=== PATIENT | male | born 2005 | race Caucasian/White ===

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

== ENCOUNTER 2025-02-25 12:56 | Emergency (ER) | payer SELFPAY ==
[2025-02-25 13:30] LABS: BASOPHILS ABSOLUTE AUTO 0.1 K/mm3 (0.0-0.3); BASOPHILS PERCENT AUTO 0.9 % (0.0-1.0); EOSINOPHILS ABSOLUTE AUTO 0.0 K/mm3 (0.0-0.7); EOSINOPHILS PERCENT AUTO 0.5 % (0.0-5.0); IMMATURE GRAN ABSOLUTE AUTO 0.01 K/mm3 (0.00-0.05); IMMATURE GRAN PERCENT AUTO 0.2 % (0.0-0.4); LYMPHOCYTES ABSOLUTE AUTO 2.5 K/mm3 (2.0-8.8); LYMPHOCYTES PERCENT AUTO 44.7 % (50.0-65.0); MEAN PLATELET VOLUME 9.9 fl (9.4-12.4); MONOCYTES ABSOLUTE AUTO 0.5 K/mm3 (0.1-1.4); MONOCYTES PERCENT AUTO 8.0 % (2.0-10.0); NEUTROPHILS ABSOLUTE AUTO 2.6 K/mm3 (1.5-8.5); NEUTROPHILS PERCENT AUTO 45.7 % (35.0-45.0); NRBC ABSOLUTE 0.00 (0.00-0.03); NRBC PERCENT 0.0 % (0.0-0.2); PLATELET COUNT,PLT 206 K/mm3 (150-400); RED BLOOD CELL COUNT 5.20 M/mm3 (4.52-5.90); WHITE BLOOD CELL COUNT,WBC 5.66 K/mm3 (4.5-13.5)
[2025-02-25] MEDS: Alum Hydrox/Mag Hydrox/Simeth 30 ML, Lidocaine 2% 15 ML PO ONE (13:32)
[2025-02-25] MEDS: Ondansetron 4 MG Tab.DIS PO ONE (13:34)
[2025-02-25 13:52] LABS: INR 1.05
[2025-02-25 13:54] LABS: D-DIMER QUANTITATIVE < 0.19 mg/L (0.19-0.50); PTT,PARTIAL THROMBOPLSTIN TIME 27.2 SECONDS (21.7-31.4)
[2025-02-25 14:00] LABS: A/G RATIO 1.3 (1-2); ALANINE AMINOTRANSFERASE,ALT 14 U/L (16-63); ASPARTATE AMNIOTRANSFERASE,AST 15 U/L (15-37); BILIRUBIN TOTAL 0.7 mg/dL (0.2-1.0); BLOOD UREA NITROGEN,BUN 17 mg/dL (7-18); CARBON DIOXIDE,CO2 24 mEq/L (21-32); CHLORIDE,CL 106 mEq/L (98-107); CREATININE 0.9 mg/dL (0.7-1.3); EST CRCL DRUG DOSING (CG) 44.04 mL/min; ESTIMATED GFR 126 mL/min (>60); GLUCOSE RANDOM 88 mg/dL (70-99); POTASSIUM,K 4.3 mEq/L (3.5-5.1); PROTEIN TOTAL,TP 7.5 g/dl (6.4-8.2); SODIUM,NA 140 mEq/L (136-145)
[2025-02-25 14:02] LABS: TROPONIN I HIGH SENSITIVITY < 4 pg/mL (<=76)
== END 2025-02-25 14:40 | disposition home or self-care (01) ==
LOC: JD.ED 12:56
DX: R07.89 Other chest pain (principal); Z88.8 Allergy status to other drugs, medicaments and biological substances
CPT/HCPCS: 36415; 71045; 80053; 83735; 83880; 84484; 85025; 85379; 85610; 85730; 93005; 99285; A9270